=== PATIENT | female | born 1985 | race Hispanic/Latino ===

== ENCOUNTER 2018-05-30 10:38 | Emergency (ER) | payer OTHER ==
[~2018-05-30] VITALS: Ht 154.9 cm; Wt 111.4 kg
[~2018-05-30 10:38] MED LIST: AMOXICILLIN500 MG OR; ANUSOL HC25 MG RE; CARAFATE1 GM/10 ML OR; CIPROFLOXACN500 MG OR; CIPROFLOXACN500 MG PO; DARVOCET-N 100100 MG OR; ERY-TAB333 MG OR; FLAGYL500 MG OR; IBUPROFEN600 MG PO; IRON325 MG PO; LORTAB 7.57.5 MG PO; MACROBID100 MG PO; MEDDOSEPAK OR; NAPROSYN375 MG PO; NO HOME MEDS; PENICILLIN VK250 MG PO; PRE-NATAL PO; PREVACID30 M2 OR; PRILOSEC OTC20 MG OR; PROTONIX40 MG OR; REGLAN10 MG OR; ROBITUSSIN AC10 ML OR; ROBITUSSIN10 ML PO; ULTRAM50 M1 PO; ZOFRAN8 MG OR
[2018-05-30] MEDS ORDERED: LEVOTHYROXIN50 MCG PO (10:52)
[2018-05-30 12:31] LABS: HEMATOCRIT 41.5 % (37.0-47.0); IMMATURE GRANULOCYTES 0.4 % (0.0-5.0); MEAN CELL VOLUME 89.6 fL CALC (80.0-100.0); MEAN CORPUSCULAR HGB 28.1 pG CALC (26.0-32.0); MEAN CORPUSCULAR HGB CONC 31.3 g/L CALC (32.0-36.0); NEUT# 4.21 thou/uL (2.00-7.15); RED BLOOD COUNT 4.63 mill/uL (4.20-5.60)
[2018-05-30 12:45] LABS: ANION GAP 13 (6-22 (CALC)); BUN 16 mg/dL (7-17); BUN/CREATININE RATIO 20 (12-20 (CALC)); CARBON DIOXIDE 27 mmol/l (22-30); CHLORIDE 107 mmol/l (95-108); CREATININE 0.8 mg/dL (0.5-1.0); GFR > 60 ML/MIN (>=60 (CALC)); GFR FOR AFR.AMER. > 60 ML/MIN (>=60 (CALC)); POTASSIUM 4.5 mmol/l (3.5-5.1); SODIUM 142 mmol/l (137-146)
[2018-05-30 13:19] VITALS: BP 144/88
== END 2018-05-30 13:24 | disposition home or self-care (01) ==
LOC: ED 10:38
PROVIDERS: Family Medicine
DX: M25.511 Pain in right shoulder (principal)

== ENCOUNTER 2018-06-22 23:19 | Emergency (ER) | payer OTHER ==
[~2018-06-22] VITALS: Ht 154.9 cm; Wt 111.4 kg
[~2018-06-22 23:19] MED LIST changes: +LEVOTHYROXIN50 MCG PO
[2018-06-22 23:55] VITALS: BP 131/79
[2018-06-22] MEDS ORDERED: BETAMETH VAL0.1 % EX (23:57)
== END 2018-06-22 23:55 | disposition home or self-care (01) ==
LOC: ED 23:19
DX: L30.9 Dermatitis, unspecified (principal); E03.9 Hypothyroidism, unspecified; N64.4 Mastodynia

== ENCOUNTER 2019-01-26 23:48 | Emergency (ER) | payer OTHER ==
[~2019-01-26] VITALS: Ht 157.5 cm; Wt 115.0 kg
[~2019-01-26 23:48] MED LIST changes: +BETAMETH VAL0.1 % EX
[2019-01-27 00:36] LABS: HEMATOCRIT 41.7 % (37.0-47.0); HEMOGLOBIN 12.8 g/dl (12.0-16.0); IMMATURE GRANULOCYTES 0.4 % (0.0-5.0); MEAN CELL VOLUME 90.7 fL CALC (80.0-100.0); MEAN CORPUSCULAR HGB 27.8 pG CALC (26.0-32.0); MEAN CORPUSCULAR HGB CONC 30.7 g/L CALC (32.0-36.0); NEUT# 6.4 thou/uL (2.00-7.15); RED BLOOD COUNT 4.6 mill/uL (4.20-5.60); RED CELL DISTRI WIDTH 13.9 % (11.5-15.5)
[2019-01-27 00:40] LABS: ANION GAP 14 (6-22 (CALC)); BILIRUBIN, TOTAL 0.3 mg/dL (0.0-1.4); BUN 19 mg/dL (7-17); BUN/CREATININE RATIO 20 (12-20 (CALC)); CARBON DIOXIDE 27 mmol/l (22-30); CHLORIDE 107 mmol/l (95-108); CREATININE 0.9 mg/dL (0.5-1.0); GFR > 60 ML/MIN (>=60 (CALC)); GFR FOR AFR.AMER. > 60 ML/MIN (>=60 (CALC)); SGOT/AST 27 u/l (14-36); SODIUM 143 mmol/l (137-146)
[2019-01-27 00:42] LABS: ALBUMIN 4.5 g/dL (3.2-5.0); ALKALINE PHOSPHATASE 65 u/l (38-126); TOTAL PROTEIN 7.6 g/dL (6.3-8.2)
[2019-01-27 00:52] LABS: MYOGLOBIN 35 ng/mL (0 - 62)
[2019-01-27] MEDS ORDERED: NAPROSYN500 MG PO (03:48)
[2019-01-27 04:16] VITALS: BP 111/70
== END 2019-01-27 04:15 | disposition home or self-care (01) ==
LOC: ED 23:48
PROVIDERS: Emergency Medicine
DX: R07.89 Other chest pain (principal)

== ENCOUNTER 2019-06-01 09:15 | Emergency (ER) | payer OTHER ==
[~2019-06-01] VITALS: Ht 157.5 cm; Wt 114.6 kg
[~2019-06-01 09:15] MED LIST changes: +NAPROSYN500 MG PO
[2019-06-01] MEDS ORDERED: LEVOTHYROXIN112 MC1 PO (10:38)
[2019-06-01 11:45] VITALS: BP 131/74
[2019-06-01] MEDS ORDERED: CYCLOBENZAPR5 MG PO (14:48)
== END 2019-06-01 11:45 | disposition left against medical advice (07) | DRG 552 ==
LOC: ED 09:15
DX: S16.1XXA Strain of muscle, fascia and tendon at neck level, initial encounter (principal); S29.012A Strain of muscle and tendon of back wall of thorax, initial encounter; S39.012A Strain of muscle, fascia and tendon of lower back, initial encounter; E03.9 Hypothyroidism, unspecified; V43.52XA Car driver injured in collision with other type car in traffic accident, initial encounter; Z91.19 Patient's noncompliance with other medical treatment and regimen

== ENCOUNTER 2019-08-11 | Emergency (ER) | payer OTHER ==
[~2019-08-11] MED LIST changes: +CYCLOBENZAPR5 MG PO; +LEVOTHYROXIN112 MC1 PO
[2019-08-11 16:39] LABS: URINE BILIRUBIN - DIPSTICK NEGATIVE (NEGATIVE); URINE BLOOD DIPSTICK TRACE-INTACT (NEGATIVE); URINE COLOR YELLOW; URINE GLUCOSE - DIPSTICK NEGATIVE (NEGATIVE); URINE KETONE NEGATIVE (NEGATIVE); URINE LEUK ESTERASE NEGATIVE (NEGATIVE); URINE NITRITE - DIPSTICK NEGATIVE (Negative); URINE PROTEIN - DIPSTICK NEGATIVE (NEG-TRACE); URINE SPECIFIC GRAVITY 1.025; URINE UROBILINOGEN - DIPSTICK 0.2 E.U./dL (0.2)
[2019-08-11 16:56] LABS: ALBUMIN 4.5 g/dL (3.2-5.0); ALKALINE PHOSPHATASE 64 u/l (38-126); AMYLASE 62 u/l (30-110); ANION GAP 14 (6-22 (CALC)); BILIRUBIN, TOTAL 0.3 mg/dL (0.0-1.4); BUN 22 mg/dL (7-17); BUN/CREATININE RATIO 19 (12-20 (CALC)); CARBON DIOXIDE 24 mmol/l (22-30); CHLORIDE 107 mmol/l (95-108); CREATININE 1.2 mg/dL (0.5-1.0); GFR 52 ML/MIN (>=60 (CALC)); GFR FOR AFR.AMER. > 60 ML/MIN (>=60 (CALC)); HEMATOCRIT 39.9 % (37.0-47.0); HEMOGLOBIN 12.2 g/dl (12.0-16.0); IMMATURE GRANULOCYTES 0.5 % (0.0-5.0); LIPASE 209 u/l (23-300); MEAN CELL VOLUME 88.1 fL CALC (80.0-100.0); MEAN CORPUSCULAR HGB 26.9 pG CALC (26.0-32.0); MEAN CORPUSCULAR HGB CONC 30.6 g/L CALC (32.0-36.0); NEUT# 7.08 thou/uL (2.00-7.15); POTASSIUM 4.1 mmol/l (3.5-5.1); RED BLOOD COUNT 4.53 mill/uL (4.20-5.60); RED CELL DISTRI WIDTH 15.8 % (11.5-15.5); SGOT/AST 26 u/l (14-36); SODIUM 140 mmol/l (137-146)
[2019-08-11] MEDS ORDERED: PROTONIX40 M2 PO (19:58)
[2019-08-11] MEDS ORDERED: TRAMADOL HYDROC50 MG PO (19:58)
== END 2019-08-11 20:05 | disposition home or self-care (01) ==
PROVIDERS: Family Medicine
DX: R10.11 Right upper quadrant pain (principal); E03.9 Hypothyroidism, unspecified; D36.7 Benign neoplasm of other specified sites
CPT/HCPCS: Q9967

== ENCOUNTER 2020-01-04 23:04 | Emergency (ER) | payer OTHER ==
[~2020-01-04 23:04] MED LIST changes: +PROTONIX40 M2 PO; +TRAMADOL HYDROC50 MG PO
[2020-01-04 23:38] LABS: HEMATOCRIT 41.7 % (37.0-47.0); HEMOGLOBIN 12.8 g/dl (12.0-16.0); IMMATURE GRANULOCYTES 0.3 % (0.0-5.0); MEAN CELL VOLUME 84.8 fL CALC (80.0-100.0); MEAN CORPUSCULAR HGB CONC 30.7 g/dL CAL (32.0-36.0); NEUT# 6.7 thou/uL (2.00-7.15); RED BLOOD COUNT 4.92 mill/uL (4.20-5.60); RED CELL DISTRI WIDTH 15.7 % (11.5-15.5)
[2020-01-04 23:41] LABS: URINE BILIRUBIN - DIPSTICK NEGATIVE (NEGATIVE); URINE BLOOD DIPSTICK NEGATIVE (NEGATIVE); URINE COLOR YELLOW; URINE GLUCOSE - DIPSTICK NEGATIVE (NEGATIVE); URINE KETONE NEGATIVE (NEGATIVE); URINE LEUK ESTERASE NEGATIVE (NEGATIVE); URINE NITRITE - DIPSTICK NEGATIVE (Negative); URINE PROTEIN - DIPSTICK NEGATIVE (NEG-TRACE); URINE SPECIFIC GRAVITY >=1.030; URINE UROBILINOGEN - DIPSTICK 0.2 E.U./dL (0.2)
[2020-01-04] MEDS ORDERED: PROVENTIL (23:50)
[2020-01-04 23:58] LABS: ALBUMIN 4.2 g/dL (3.2-5.0); ALKALINE PHOSPHATASE 62 u/l (38-126); ANION GAP 13 (6-22 (CALC)); BILIRUBIN, TOTAL 0.4 mg/dL (0.0-1.4); BUN 16 mg/dL (7-17); BUN/CREATININE RATIO 19 (12-20 (CALC)); CARBON DIOXIDE 23 mmol/l (22-30); CHLORIDE 106 mmol/l (95-108); CREATININE 0.9 mg/dL (0.5-1.0); GFR > 60 ML/MIN (>=60 (CALC)); GFR FOR AFR.AMER. > 60 ML/MIN (>=60 (CALC)); POTASSIUM 3.6 mmol/l (3.5-5.1); SGOT/AST 25 u/l (14-36); SODIUM 138 mmol/l (137-146); TOTAL PROTEIN 7.5 g/dL (6.3-8.2)
[2020-01-05 00:10] LABS: MYOGLOBIN 44 ng/mL (0 - 62)
[2020-01-05] MEDS ORDERED: NAPROXEN500 MG PO (01:37)
[2020-01-05 01:52] VITALS: BP 116/75
== END 2020-01-05 01:52 | disposition home or self-care (01) ==
LOC: ED 23:04
PROVIDERS: Emergency Medicine
DX: R07.89 Other chest pain (principal); R51 Headache; J02.9 Acute pharyngitis, unspecified; R06.02 Shortness of breath; Z20.828 Contact with and (suspected) exposure to other viral communicable diseases

== ENCOUNTER 2020-07-03 15:37 | Emergency (ER) | payer OTHER ==
[~2020-07-03] VITALS: Ht 157.5 cm; Wt 116.0 kg
[~2020-07-03 15:37] MED LIST changes: +NAPROXEN500 MG PO; +PROVENTIL
[2020-07-03 18:26] VITALS: BP 139/92
--- NOTE | 2020-07-06 13:41 | NUR ---
Patient called for Covid results. Advised patient of negative results. Patient requests results be faxed to [facility] attn: Bettina Guzman [phone]. Verbal authorization received from patient to fax results to [facility].
== END 2020-07-03 18:26 | disposition home or self-care (01) ==
LOC: ED 15:37
DX: B34.9 Viral infection, unspecified (principal); E03.9 Hypothyroidism, unspecified; Z20.828 Contact with and (suspected) exposure to other viral communicable diseases

== ENCOUNTER 2020-12-18 15:35 | Emergency (ER) | payer OTHER ==
[~2020-12-18] VITALS: Ht 157.5 cm; Wt 115.0 kg
[2020-12-18 18:28] VITALS: BP 133/79
== END 2020-12-18 18:37 | disposition home or self-care (01) | DRG 552 ==
LOC: ED 15:35
DX: M54.5 Low back pain (principal); M25.552 Pain in left hip; M25.551 Pain in right hip; M25.511 Pain in right shoulder; E03.9 Hypothyroidism, unspecified; V49.40XA Driver injured in collision with unspecified motor vehicles in traffic accident, initial encounter

== ENCOUNTER 2021-03-24 14:24 | Emergency (ER) | payer OTHER ==
[~2021-03-24] VITALS: Ht 157.5 cm; Wt 127.0 kg
[2021-03-24 16:18] VITALS: BP 120/70
== END 2021-03-24 16:18 | disposition home or self-care (01) ==
LOC: ED 14:24
DX: U07.1 COVID-19 (principal); E03.9 Hypothyroidism, unspecified

== ENCOUNTER 2021-04-07 11:33 | Emergency (ER) | payer OTHER ==
[~2021-04-07] VITALS: Ht 157.5 cm; Wt 118.0 kg
[2021-04-07 14:15] VITALS: BP 132/80
== END 2021-04-07 14:15 | disposition home or self-care (01) ==
LOC: ED 11:33
DX: R05 Cough (principal); E03.9 Hypothyroidism, unspecified; Z86.16 Personal history of COVID-19

== ENCOUNTER 2022-07-07 09:06 | Emergency (ER) | payer OTHER ==
[~2022-07-07] VITALS: Ht 157.5 cm; Wt 113.3 kg
[2022-07-07 09:12] VITALS: BP 143/105
[2022-07-07] MEDS ORDERED: DOXY-CAPS100 MG PO (09:19)
[2022-07-07] MEDS ORDERED: PROVENTIL HFA IN (09:19)
[2022-07-07 09:32] VITALS: BP 143/105
== END 2022-07-07 09:41 | disposition home or self-care (01) ==
LOC: ED 09:06
DX: J40 Bronchitis, not specified as acute or chronic (principal); E03.9 Hypothyroidism, unspecified

== ENCOUNTER 2023-03-10 21:56 | Emergency (ER) | payer OTHER ==
[~2023-03-10 21:56] MED LIST changes: +DOXY-CAPS100 MG PO; +PROVENTIL HFA IN
== END 2023-03-11 00:55 | disposition left against medical advice (07) | DRG 951 ==
LOC: ED 21:56 → LWOBS 03-11 00:55
DX: Z53.21 Procedure and treatment not carried out due to patient leaving prior to being seen by health care provider (principal)

== ENCOUNTER 2023-09-22 08:25 | Emergency (ER) | payer OTHER ==
[~2023-09-22] VITALS: Ht 157.5 cm; Wt 105.0 kg
[2023-09-22] MEDS ORDERED: LIDOcaine HCl 1% (Local Anesth.) 20 ML VIAL IM STA (09:46)
[2023-09-22] MEDS ORDERED: ZITHROMAX500 MG PO (09:48)
[2023-09-22] MEDS ORDERED: cefTRIAXone SODIUM 1 GM/VIAL SDV IM ONE (09:50)
[2023-09-22 10:00] VITALS: BP 141/88
== END 2023-09-22 10:00 | disposition home or self-care (01) ==
LOC: ED 08:25
DX: J02.0 Streptococcal pharyngitis (principal); E03.9 Hypothyroidism, unspecified; Z20.822 Contact with and (suspected) exposure to COVID-19

== ENCOUNTER 2024-02-06 16:08 | Emergency (ER) | payer SELFPAY ==
[~2024-02-06] VITALS: Ht 157.5 cm; Wt 113.4 kg
[~2024-02-06 16:08] MED LIST changes: +AMOX/K CLAV875 M1 PO; +ERYGEL EX; +ZITHROMAX500 MG PO
[2024-02-06 16:33] VITALS: BP 132/95
[2024-02-06 16:45] VITALS: BP 137/91
[2024-02-06] MEDS ORDERED: DEXAMETHASONE SOD. PHOSPHATE 10 MG/ML VIAL IV ONE (16:45)
[2024-02-06 17:00] VITALS: BP 133/94
[2024-02-06 17:15] VITALS: BP 130/90
[2024-02-06] MEDS ORDERED: MEDDOSEPAK PO (17:17)
[2024-02-06 17:30] VITALS: BP 146/108
[2024-02-06 17:33] VITALS: BP 143/104
== END 2024-02-06 17:52 | disposition home or self-care (01) | DRG 179 ==
LOC: ED 16:08
DX: U07.1 COVID-19 (principal); J02.9 Acute pharyngitis, unspecified; R05.9 Cough, unspecified; R50.9 Fever, unspecified; R52 Pain, unspecified; H92.01 Otalgia, right ear; E03.9 Hypothyroidism, unspecified

== ENCOUNTER 2024-10-22 22:20 | Emergency (ER) | payer SELFPAY ==
[~2024-10-22] VITALS: Ht 157.5 cm; Wt 104.3 kg
[~2024-10-22 22:20] MED LIST changes: +MEDDOSEPAK PO
[2024-10-22] MEDS ORDERED: DECADRON4 MG PO (23:05)
[2024-10-22] MEDS ORDERED: BENZONATATE200 MG PO (23:05)
[2024-10-22] MEDS ORDERED: BENZONATATE 200 MG/CAP PO ONE (23:05)
[2024-10-22] MEDS ORDERED: AZITHROMYCIN 250 MG/TAB PO ONE (23:05)
[2024-10-22] MEDS ORDERED: AZITHROMYCIN500 MG PO (23:05)
[2024-10-22 23:26] VITALS: BP 134/77
== END 2024-10-22 23:28 | disposition home or self-care (01) | DRG 153 ==
LOC: ED 22:20
DX: J06.9 Acute upper respiratory infection, unspecified (principal); F17.200 Nicotine dependence, unspecified, uncomplicated; E03.9 Hypothyroidism, unspecified